=== PATIENT | female | born 1965 | race African-American/Black ===

== ENCOUNTER 2019-11-22 14:46 | Outpatient (CLI) | payer OTHER, SELFPAY ==
--- NOTE | ~2019-11-22 | DEXA_ITS ---
Bone Density Report Name: Sarai Tan Age: 54 Sex: Female Ethnicity: Black Date of : 1965 Indication: postmenopausal; rheumatoid arthritis; Referring Provider: SIENA KUNZ Study: Bone densitometry was performed. Exam Date: November 22, 2019 Accession number: [id number] Bone Density: Region BMD T-score Z-score Classification AP Spine (L1-L4) 1.327 2.5 2.6 Normal Femoral Neck (Left) 1.031 1.6 1.2 Normal Total Hip (Left) 1.125 1.5 1.0 Normal Total Hip Bilateral Avg 1.104 1.4 0.9 Normal Femoral Neck (Right) 1.007 1.4 1.0 Normal Total Hip (Right) 1.082 1.2 0.8 Normal World Health Organization criteria for BMD impression classify patients as: Normal (T-score at or above -1.0), Osteopenia (T-score between -1.0 and -2.5), or Osteoporosis (T-score at or below -2.5). 10-year Fracture Risk: FRAX not reported because: All T-scores for Spine Total, Hip Total, Femoral Neck at or above -1.0 Clinical Information Provided by Patient: Has rheumatoid arthritis Has used the following medications: Vitamin D, Calcium Patient maximum height was 65 Menopause Age: 52 No regular weight bearing exercise Drinks caffeinated beverages Onset of menses at age 19 Number of children 1 Impression: The patient has normal bone mass. Discussion: BONE DENSITY IS ABOVE THE MINIMUM DESIRABLE LEVEL AT ALL SKELETAL SITES TESTED. This patient?s bone mineral density is above the minimum desirable level (T-score -1.0 or better) at all sites measured. The patient should follow a healthful lifestyle (good nutrition with adequate calcium and vitamin D, and appropriate weight-bearing exercise). Follow-Up: Consider repeating this study in 5 years or sooner if there is some new clinical indication. Reported by: [facility] on 11/22/2019 3:13:00 PM. Reviewed, dictated and finalized at location ADany HUNTER
== END 2019-11-22 14:47 | disposition home or self-care (01) ==
PROVIDERS: PCP Internal Medicine; Visit Provider Internal Medicine
DX: M81.8 Other osteoporosis without current pathological fracture (principal); T38.0X5A Adverse effect of glucocorticoids and synthetic analogues, initial encounter
CPT/HCPCS: 77080